=== PATIENT | female | born 1930 | race Caucasian/White ===

== ENCOUNTER 2016-06-16 21:14 | Inpatient (IN) | payer OTHER ==
[~2016-06-16 21:14] MED LIST: AUGMENTIN 875875 MG PO; BENTYL20 MG PO; CARDIZEM 180 M180 MG PO; CARDIZEM CD 12120 MG PO; COLACE100 MG PO; COUMADIN 2.5 M2.5 MG PO; DIGOX0.125 MG PO; DILTIAZEM HCL120 M2 PO; ELIQUIS5 MG PO; FLOVENT HF0.11 MG/Ac INH; FUROSEMIDE20 MG PO; METOPROLOL SUC100 MG PO; MEVACOR20 MG PO; PERCOCET 325 MG1 TA2 PO; PREDNISONE10 MG PO; PROAIR HFA0.09 MG/Ac PO; Robitussin PO; SPIRIVA 18 MCG18 MCG INH; TOPROL XL 25MG25 MG PO; WARFARIN SODIUM5 MG PO; ZOLOFT50 MG PO
--- NOTE | 2016-06-16 21:22 | NUR ---
PER PT/DAUGHTER IN BED SINCE TUESDAY VAGUE CO COUGH NOT FEELING WELL NO NVD NO FEVER, DRY COUGH IN TRIAGE. DENEIS PAIN
--- NOTE | 2016-06-16 21:42 | ED GENERAL ADULT ---
History of Present Illness General Chief Complaint: General Adult Stated Complaint: "DON'T FEEL WEEL, WEAKNESS.+N+V-D, HX A-FIB" Source: patient, family, old records Exam Limitations: clinical condition Vital Signs & Intake/Output Vital Signs & Intake/Output Vital Signs Date Time Temp Pulse Resp B/P Pulse O2 O2 Flow FiO2 Ox Delivery Rate 06/16 2250 95 Nasal 2.0L Cannula 06/16 2122 97.9 92 22 109/78 93 Room Air Allergies Coded Allergies: NO KNOWN ALLERGIES (03/17/11) Reconcile Medications Albuterol Sulfate (Proair Hfa) 0.09 MG/Actuation LASHON 2 PUFF PO Q4 HRS NEEDED PRN BREATHING PROBLEMS Reason to Stop at ADM: ON TRC NEBS Apixaban (Eliquis) 5 MG TABLET 1 TAB PO BID anticoagulation free card given to patient. if patient requires further prescription prior authorization required from Dr. Boyer office. Diltiazem HCl (Diltiazem 24HR ER) 360 MG CAP.ER.24H 1 CAP PO DAILY AFIB Docusate Sodium (Colace) 100 MG SGL 1 CAP PO BID for constipation this is available otc Escitalopram Oxalate (Lexapro) 20 MG TABLET 1 TAB PO DAILY mental health ( Reported) Fluticasone Propionate (Flovent Hfa) 0.11 MG/Actuation LASHON 2 PUF INH BID SHORTNESS OF BREATH Furosemide 20 MG TABLET 1 TAB PO EOD DIUERTIC (Reported) Levothyroxine Sodium 50 MCG TABLET 0.5 TAB PO DAILY hypothyroid (Reported) Lovastatin (Mevacor) 20 MG TABLET 1 TAB PO DAILY CHOLESTEROL (Reported) Prednisone 20 MG TABLET 40 MG PO DAILY bronchitis STOP ON 06/21/2016 Tiotropium [place] (Spiriva) 18 MCG CAP.W.DEV 1 CAP INH DAILY SHORTNESS OF BREATH Triage Note: PER PT/DAUGHTER IN BED SINCE TUESDAY VAGUE CO COUGH NOT FEELING WELL NO NVD NO FEVER, DRY COUGH IN TRIAGE. SLADEEIS PAIN Triage Nurses Notes Reviewed? yes Onset: Gradual Duration: day(s): (3) Timing: recent history Injury Environment: home Severity: moderate No Modifying Factors: none Associated Symptoms: cough HPI: 85 year old female who presents to the ER with her daughter for chief complaint of dry cough for the past 3 days associated with weaknes, malaise and poor oral intake. No productive sputum, fever or chills. Denies chest pain. Found to be in rapid afib on arrival. History of Afib on eliquis. Past History Travel History Traveled to [place] past 21 day No Medical History Any Pertinent Medical History? 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 History of MRSA: No History of VRE: No History of CDIFF: No Surgical History Surgical History: hysterectomy, RIGHT KNEE REPLACEMENT, TAHBSO, ELBOW SURGERY COLOSTOMY Psychosocial History Who do you live with Patient and family Services at Home None What is your primary language Czech Tobacco Use: Never used Family History Family History, If Any: FATHER, , Age 70; Cause: Prostate cancer. MOTHER, , Age 100. BROTHER (COLON CANCER). , Age 66. Relation not specified for: malignant neoplasm of colon in relative diagnosed when older than 50 years of age Hx Contributory? No Review of Systems Review of Systems Constitutional: Reports: weakness. Denies: chills, fever, malaise. EENTM: Reports: no symptoms. Respiratory: Reports: cough, short of breath. Denies: sputum production. Cardiovascular: Denies: chest pain, palpitations. GI: Denies: abdominal pain. Genitourinary: Reports: no symptoms. Musculoskeletal: Reports: no symptoms. Skin: Reports: no symptoms. Neurological/Psychological: Denies: anxiety, confusion. Hematologic/Endocrine: Denies: bruising, bleeding. Immunologic/Allergic: Denies: splenectomy. All Other Systems: Reviewed and Negative Physical Exam Physical Exam General Appearance: alert, awake, anxious, mild distress Head: atraumatic, normal appearance Eyes: Bilateral: PERRL, EOMI. Ears, Nose, Throat: normal pharynx, normal ENT inspection, hearing grossly normal Neck: normal inspection, supple, full range of motion Respiratory: chest non-tender, no respiratory distress, decreased breath sounds Cardiovascular: tachycardia, irregularly irregular Peripheral Pulses: 2+ radial (R), 2+ radial (L) Gastrointestinal: normal bowel sounds, soft, non-tender Extremities: normal inspection, normal capillary refill, normal range of motion, no edema Neurologic/Psych: no motor/sensory deficits, awake, alert, oriented x 3 Skin: intact, normal color, warm/dry Core Measures ACS in differential dx? Yes ASA ordered for poss ACS? No-other contraindication (ELIQUIS) CVA/TIA Diagnosis: No Severe Sepsis Present: No Septic Shock Present: No Progress Differential Diagnoses I considered the following diagnoses in my evaluation of the patient: [rapid afib, chf, pneumonia, acs, ami] Plan of Care: Orders Procedure Date/time Status Heart Healthy Diet 06/17 B Active LACTIC ACID 06/17 41 Active Admit to inpatient 06/16 2249 Active Vital Signs 06/16 2249 Active LOWER RESPIRATORY CULTURE 06/16 2143 Active Telemetry/Swimming Pool Maintenance Supervisor 06/16 2141 Active RAPID VIRAL INFLUENZA A 06/16 2141 Complete BLOOD CULTURE 06/16 2141 Active URINALYSIS 06/16 2141 Active TROPONIN LEVEL 06/16 2141 Complete PARTIAL THROMBOPLASTIN TIME 06/16 2141 Complete PROTHROMBIN TIME 06/16 2141 Complete LACTIC ACID 06/16 2141 Complete COMPREHENSIVE METABOLIC PANEL 06/16 2141 Complete CBC WITHOUT DIFFERENTIAL 06/16 2141 Complete EKG 06/16 2123 Active Current Medications Sig/Shannon Start time Last Medication Dose Stop Time Status Admin Diltiazem HCl 125 MG Q12H 06/16 2229 UNVr (Cardizem DRIP) Sodium Chloride 100 ML (Normal Saline 0.9%) Sodium Chloride 500 ML BOLUS ONE 06/16 2229 AC (Normal Saline 0.9%) 06/16 2329 Laboratory Tests 06/16/162149: Anion Gap 14, Estimated GFR 31 L, BUN/Creatinine Ratio 22.5, Glucose 137 H, Lactic Acid 2.2 H, Calcium 8.7, Total Bilirubin 0.8, AST 29, ALT 32, Alkaline Phosphatase 94, Troponin I 0.02, Total Protein 6.8, Albumin 4.1, Globulin 2.7, Albumin/Globulin Ratio 1.5, PT 13.9 H, INR 1.33 H, APTT 40 H, CBC w Diff NO MAN DIFF REQ, RBC 5.53 H, MCV 90.9, MCH 29.9, RDW 14.3, MPV 9.8, Gran % 62.4, Lymphocytes % 24.4, Monocytes % 12.8 H, Eosinophils % 0.1, Basophils % 0.3, Absolute Granulocytes 4.2, Absolute Lymphocytes 1.6, Absolute Monocytes 0.9 H, Absolute Eosinophils 0, Absolute Basophils 0, PUBS MCHC 32.9 L Microbiology 06/16 2224 BLOOD: Blood Culture - RECD 06/16 2149 BLOOD: Blood Culture - RECD 06/16 2143 LOWER RESP: Respiratory Culture - ORD 06/16 2143 LOWER RESP: Gram Stain - ORD Diagnostic Imaging: Viewed by Me: Radiology Read. Discussed w/RAD: Radiology Read. CXR Impression: PATIENT: COLLETTE BARROSO PRESENT AGE: 85 PATIENT ACCOUNT NO: [id number] : 30 LOCATION: [facility] ORDERING PHYSICIAN: TYLER BONDS MD SERVICE DATE: 06/16/16 EXAM TYPE: RAD - XRY-PORTABLE CHEST XRAY EXAMINATION: XR PORTABLE CHEST CLINICAL INFORMATION: Cough and shortness of breath COMPARISON: Chest x-ray 01/16/2015 TECHNIQUE: Portable AP portable view of the chest was obtained. 10:04 PM FINDINGS: Heart size enlarged. There are calcifications of thoracic aorta. No pulmonary vascular congestion. No acute change. No infiltrate or pleural effusion. IMPRESSION: No acute change of chest. Cardiomegaly. No congestive heart failure. DICTATED BY: JEREMY GARCIA MD DATE/TIME DICTATED:06/16/162219 DIRECTOR HEALTH:NORMA DATE/TIME TRANSCRIBED:06/16/162219 CONFIDENTIAL, DO NOT COPY WITHOUT APPROPRIATE AUTHORIZATION. <Electronically signed in Other Vendor System> SIGNED BY: JEREMY GARCIA MD 06/16/162224 Initial ED EKG: AFIB (RAPID) Rhythm Strip: atrial fibrillation (RAPID) Departure Departure Disposition: STILL A PATIENT Condition: Stable Clinical Impression Primary Impression: Rapid atrial fibrillation Secondary Impressions: Acute bronchitis, LAINE (acute kidney injury) Referrals: RAMON DOLL,KIM Guerin (PCP/Family) Departure Forms: Customer Survey General Discharge Information Prescriptions: Current Visit Scripts Diltiazem HCl (Diltiazem 24HR ER) 1 CAP PO DAILY #30 CAP Prednisone 40 MG PO DAILY 1 Days STOP ON 06/21/2016 Admission Note Spoke With: CANELO TOM MD Documentation of Exam: Documentation of any treatments & extenuating circumstances including Concerns Regarding Discharge (functional status, medication knowledge or non-compliance, living conditions, etc.) that warrant an admission rather than observation: [ TELE MONITOR, CARDIZEM DRIP, IV FLUIDS, MONITOR I/O, SERIAL EKG/TROPONIN, TRC/ NEBS, IV STEROIDS, PULMONARY CONSULT] Critical Care Note Critical Care Note Critical Care Time: 30-74 min
--- NOTE | 2016-06-16 21:45 | NUR ---
IN ROOM 8. SEEN BY DR BONDS
--- NOTE | 2016-06-16 21:50 | NUR ---
RECIEVED TO ROOM 8. ASSISTED BY MST TO GET UNDRESSED AND EKG DONE
[2016-06-16 22:05] LABS: ABSOLUTE BASOPHIL COUNT 0 /CUMM (0.0-0.2); ABSOLUTE EOSINOPHIL COUNT 0 /CUMM (0.0-0.7); ABSOLUTE GRANULOCYTE CT 4.2 /CUMM (1.4-6.5); ABSOLUTE LYMPH COUNT 1.6 /CUMM (1.2-3.4); ABSOLUTE MONOCYTE COUNT 0.9 /CUMM (0.10-0.60); BASOPHIL % 0.3 % (0.0-2.0); EOSINOPHIL % 0.1 % (0-5); GRANULOCYTE % 62.4 % (42.2-75.2); HEMATOCRIT 50.3 % (37-47); MEAN CORPUSCULAR HGB 29.9 PG (27.0-31.0); MEAN CORPUSCULAR HGB CONC 32.9 G/DL (33.0-37.0); MEAN CORPUSCULAR VOLUME 90.9 FL (81.0-99.0); MEAN PLATELET VOLUME 9.8 FL (7.4-10.4); PLATELET COUNT 155 /CUMM (130-400); RBC DISTRIBUTION WIDTH 14.3 % (11.5-14.5); RED BLOOD CELL CT 5.53 /CUMM (4.20-5.40); WHITE BLOOD CELL COUNT 6.7 /CUMM (4.8-10.8)
--- NOTE | 2016-06-16 22:12 | NUR ---
PT ON MONITOR, IN AFIB WITH VENTRICULAR RATE OF 150. IV PLACED IN RIGHT ARM BY LUIS A EASON. LABS DRAWN BY LUIS A EASON -LAV, BAUER, BLUE, SST AND PINK. FIRST SET OF BLOOD CULTURES DONE. IVF BOLUS STARTED.
[2016-06-16 22:13] LABS: PT 13.9 SEC (9.4-12.5); PTT 40 SEC (25-37)
--- NOTE | 2016-06-16 22:13 | NUR ---
PORTABLE CXR DONE
--- NOTE | 2016-06-16 22:25 | RADIOLOGY REPORT ---
EXAMINATION: XR PORTABLE CHEST CLINICAL INFORMATION: Cough and shortness of breath COMPARISON: Chest x-ray 01/16/2015 TECHNIQUE: Portable AP portable view of the chest was obtained. 10:04 PM FINDINGS: Heart size enlarged. There are calcifications of thoracic aorta. No pulmonary vascular congestion. No acute change. No infiltrate or pleural effusion. IMPRESSION: No acute change of chest. Cardiomegaly. No congestive heart failure.
--- NOTE | 2016-06-16 23:09 | NUR ---
PT STARTED ON DILTIAZEM GTT AT 5MG/HR. SOLUMEDROL GIVEN. NEB TX GIVEN. ASSISTED TO COMMODE, UNABLE TO VOID
--- NOTE | 2016-06-17 00:13 | History & Physical ---
MYCHAL DOLL,[facility] [employer] [facility] [employer] 06/17/16 0013: General Information and HPI MD Statement: I have seen and personally examined COLLETTE TORRES and documented this H&P. The patient is a 85 year old F who presented with a patient stated chief complaint of lethargy, weakness and fatigue. Source of Information: patient, old records Exam Limitations: no limitations History of Present Illness: Ms. Torres is a 85-year-old lady With past medical history of paroxysmal atrial fibrillation on anticoagulation, hyperlipidemia and questionable reactive airway disease, who presented to the emergency department at [facility] complaining of lethargy, fatigue, and a sense of weakness. Patient states that her symptoms began on Tuesday06/13/2016. Patient states that she has had an increase in the amount of sleep that she has required. Patient states that she has had poor by mouth intake. Patient states that this evening prior to coming in her daughter attempted to check her pulse and was unable to locate one. Patient was subsequently brought in by daughter. Patient denies any history or recent falls or loss of cousciousnes. Patient states that she is in no pain at the moment. Patient does report subjective dizziness likely related to change in position. Patient reports cough with minor sputum. She denies any fever, chills, nausea, vomiting. Patient lives at home with daughter and grand kids. Patient's is in a nursing care facility. Patient's primary care physician is Dr. Navarro. Patient's wire photo operator is Dr. Amador. Allergies/Medications Allergies: Coded Allergies: NO KNOWN ALLERGIES (03/17/11) Home Med list Albuterol Sulfate (Proair Hfa) 0.09 MG/Actuation LASHON 2 PUFF PO Q4 HRS NEEDED PRN BREATHING PROBLEMS Reason to Stop at ADM: ON C NEBS Apixaban (Eliquis) 5 MG TABLET 1 TAB PO BID anticoagulation free card given to patient. if patient requires further prescription prior authorization required from Dr. Boyer office. Digoxin (Digox) 0.125 MG TAB 1 TAB PO DAILY HEART HEALTH (Reported) Diltiazem Hydrochloride (Diltiazem HCl) 120 MG C24 1 CAP PO DAILY HEART HEALTH (Reported) Docusate Sodium (Colace) 100 MG SGL 1 CAP PO BID for constipation this is available otc Fluticasone Propionate (Flovent Hfa) 0.11 MG/Actuation LASHON 2 PUF INH BID SHORTNESS OF BREATH Furosemide 20 MG TABLET 1 TAB PO EOD DIUERTIC (Reported) Lovastatin (Mevacor) 20 MG TABLET 1 TAB PO DAILY CHOLESTEROL (Reported) Metoprolol Succ XL (Toprol XL 25MG) 50 MG TAB.ER.24H 25 MG PO DAILY Heart Health OXYCODONE HCL/ACETAMINOPHEN (Percocet 5-325 MG Tablet) 325 MG/5 MG TAB 1 TAB PO Q4 HRS NEEDED PRN PAIN Tiotropium [place] (Spiriva) 18 MCG CAP.W.DEV 1 CAP INH DAILY SHORTNESS OF BREATH Compliance With Home Meds: GOOD Past History Travel History Traveled to [place] past 21 day No Medical History Neurological: NONE EENT: NONE Cardiovascular: CHF, hypertension, hyperlipidemia, ATRIAL FIBRILLATION ELEVATED CHOLESTEROL Respiratory: asthma Gastrointestinal: diverticulitis, colostomy Hepatic: NONE Renal: NONE Musculoskeletal: degen joint disease Psychiatric: NONE Endocrine: NONE Blood Disorders: NONE Cancer(s): NONE BANQUET COOK/Reproductive: remote YADY/BSO 40 years ago for benign reasons. History of MRSA: No History of VRE: No History of CDIFF: No Surgical History Surgical History: hysterectomy, RIGHT KNEE REPLACEMENT, TAHBSO, ELBOW SURGERY COLOSTOMY Past Family/Social History Family History Relations & Conditions if any FATHER, , Age 70; Cause: Prostate cancer. MOTHER, , Age 100. BROTHER (COLON CANCER). , Age 66. Relation not specified for: malignant neoplasm of colon in relative diagnosed when older than 50 years of age Psychosocial History Who Do You Live With? self, in SNF for past year after hip surgery. Services at Home: None Primary Language: Maori Smoking Status: Never Smoked ETOH Use: occasional use Illicit Drug Use: denies illicit drug use Living Will? unknown Power of Liner Assembler/HCP? unknown Functional Ability ADLs Independent: dressing, eating, toileting, bathing. Ambulation: independent IADLs Independent: shopping, housework, finances, food prep, telephone, transportation , medication admin. Employment History Employment Retired Review of Systems Review of Systems Constitutional: Reports: weakness. Denies: chills, diaphoresis, fever, malaise. Cardiovascular: Denies: chest pain, edema, orthopena, palpitations, peripheral edema. Respiratory: Denies: cough, hemoptysis, orthopnea, short of breath, sputum production. GI: Denies: abdominal pain, bloating, constipation, diarrhea, distention, bowel incontinence, melena, nausea. Genitourinary: Denies: dysuria, frequency, hematuria, hesitation, nocturia. Musculoskeletal: Denies: back pain, gout, joint pain, joint swelling. Skin: Denies: change in skin color, change in hair/nails, dryness, erythema. Exam & Diagnostic Data Last 24 Hrs of Vital Signs/I&O Vital Signs Date Time Temp Pulse Resp B/P Pulse O2 O2 Flow FiO2 Ox Delivery Rate 06/17 0433 97.8 109 22 128/89 95 Nasal 2.0L Cannula 06/16 2318 Nasal 2.0L Cannula 06/16 2316 98.7 142 20 122/76 95 Nasal 2.0L Cannula 06/16 2250 95 Nasal 2.0L Cannula 06/16 2123 97.9 92 22 109/78 93 Room Air Intake & Output 06/17 0800 06/17 0000 06/16 1600 Intake Total 500 Output Total Balance 500 Intake, IV 500 Patient 68.039 kg Weight Physical Exam General Appearance Alert, Oriented X3, Cooperative, No Acute Distress Lymphatic Cervical nl Cardiovascular Normal S1, Normal S2, Irregular rate and Rhythm Lungs Expiratory Wheezing Abdomen Normal Bowel Sounds, Soft, No Tenderness, Midline Scar Neurological Normal Gait, Normal Speech, Strength at 5/5 X4 Ext, Cranial Nerves 3-12 NL Extremities No Cyanosis, No Edema Vascular Normal Pulses Last 24 Hrs of Labs/Jaiden: Laboratory Tests 06/17/16 0105: Lactic Acid 0.9 06/16/16 2150: Anion Gap 14, Estimated GFR 31 L, BUN/Creatinine Ratio 22.5, Glucose 137 H, Lactic Acid 2.2 H, Calcium 8.7, Total Bilirubin 0.8, AST 29, ALT 32, Alkaline Phosphatase 94, Troponin I 0.02, Total Protein 6.8, Albumin 4.1, Globulin 2.7, Albumin/Globulin Ratio 1.5, PT 13.9 H, INR 1.33 H, APTT 40 H, CBC w Diff NO MAN DIFF REQ, RBC 5.53 H, MCV 90.9, MCH 29.9, RDW 14.3, MPV 9.8, Gran % 62.4, Lymphocytes % 24.4, Monocytes % 12.8 H, Eosinophils % 0.1, Basophils % 0.3, Absolute Granulocytes 4.2, Absolute Lymphocytes 1.6, Absolute Monocytes 0.9 H, Absolute Eosinophils 0, Absolute Basophils 0, PUBS MCHC 32.9 L Microbiology 06/16 2224 BLOOD: Blood Culture - RECD 06/16 2149 BLOOD: Blood Culture - RECD 06/16 2143 LOWER RESP: Respiratory Culture - ORD 06/16 2143 LOWER RESP: Gram Stain - ORD Diagnostic Data EKG Results A. Fib Rate 158 QTC 441 CXR Results PATIENT: COLLETTE TORRES PRESENT AGE: 85 PATIENT ACCOUNT NO: [id number] : 30 LOCATION: [facility] ORDERING PHYSICIAN: TYLER BONDS MD SERVICE DATE: 06/16/16 EXAM TYPE: RAD - XRY-PORTABLE CHEST XRAY EXAMINATION: XR PORTABLE CHEST CLINICAL INFORMATION: Cough and shortness of breath COMPARISON: Chest x-ray 01/16/2015 TECHNIQUE: Portable AP portable view of the chest was obtained. 10:04 PM FINDINGS: Heart size enlarged. There are calcifications of thoracic aorta. No pulmonary vascular congestion. No acute change. No infiltrate or pleural effusion. IMPRESSION: No acute change of chest. Cardiomegaly. No congestive heart failure. DICTATED BY: JEREMY GARCIA MD Assessment/Plan Assessment: Ms Torres is an 85-year-old lady with past medical history of paroxysmal atrial fibrillation on current anticoagulation on Eliquis, hyperlipidemia, reactive airway disease, who presented to the emergency department after feeling weak and lethargic since Tuesday. This may have exacerbated her atrial fibrillation leading to developing rapid ventricular rate. #Atrial fibrillation with rapid ventricular rate likely due to dehydration versus upper respiratory infection. Rule out ACS, Admit to telemetry. Repeat troponins and EKG. Initial set of troponins were: 0.02, repeat troponins at 3 AM. Patient is currently on a Cardizem drip. Rate is currently 5 mL per hour. Hold by mouth metoprolol and Cardizem. Check thyroid function in a.m. rule out hyperthyroidism. If there are functions reveal elevations consider endocrinology consult. #Reactive airway disease versus bronchitis. Continue by mouth prednisone 40 mg. Patient on steroid taper. TRC Nebulizer. Incentive spirometer LRC respiratory culture. Patient may likely benefit from continue inhalers albuterol, Flovent, If patients condition deteriorates consider chest x-ray and or antibiotic coverage. #Acute and chronic kidney injury Patient likely developed condition due to dehydration. Prior admission April 2015 shows creatinine 0.7. Continue patient IV hydration Repeat BEP in a.m. Consider nephrology consult in a.m. #Diet Heart healthy sodium restricted #DVT prophylaxis Eliquis #Code Full code As Ranked By This Provider Problem List: 1. Atrial fibrillation 2. Atrial fibrillation with RVR Core Measures/Miscellaneous Acute Coronary Syndrome ACS Diagnosis: No Cerebrovascular Accident CVA/TIA Diagnosis: No Congestive Heart Failure CHF Diagnosis: No Venous Thromboembolism VTE Risk Factors: Age > 40 VTE Prophylaxis Ordered Inpt: Pharm- Eliquis No Mech VTE prophylaxis d/t: No contraindications No VTE Pharm Prophylaxis d/t: No contraindications VTE Diagnosis: No VTE Type: NONE VTE Confirmed by (Test): NONE Severe Sepsis Severe Sepsis Present: No Septic Shock Septic Shock Present: No Miscellaneous Documentation Attending Case Discussed With: CANELO TOM MD Primary Care Physician: KIM NAVARRO MD Patient sees these Specialists NA Level of Patient Care: Telemetry DIVYA BEST 06/16/16 0039: Resident Review Statement Resident Statement: examined this patient, discussed with electrical engineering intern, agreed with electrical engineering intern, discussed with family, reviewed EMR data (avail), discussed with nursing , discussed with case mgmt, reviewed images, amended to note Other Findings: 83-year-old female presente in the ED reporting progressive lethargy and fatigue over the past few days. Patient has PMH remarkable for PAFIB on a/c with Apixaban, HLP and ?? asthma/reactive airway disease, constipation, chronic leg edema. Pateient exprsses that since Tuesday, generally, she has not been feeling well, and had a very poor oral intake. She became increasingly tired and to some extend lightheaded with change of position. Patient reports that she has been having dry coughs but denies any sick contact, fever, chills, chest pain, NVD. In the ED, her Vs were satble, but EKG showed AFIB w/ RVR.ROS: low energy and fatigue and dry cough. PH/EX: AOx3, dry Mocous membrane, S1S2 regular w/o murmur , neg orthostatic, Lungs: normal expansion w/ prolonged expiration, B/L basilar Ronchi. the remainder of the PH/EX was insignificant. Pertinent data: CBC: wnl; K=3.8, BUN 36, Cr 1.6, BUN/Cr ratio >30, Previous echo from 2013>> LVEF 55%, No pulmonary HTN. TROP< 0.01, EKG: Afib, Hr 158, normal axis, no acute st, t segment change. assessment 85 year-old woman was admitted for A.fib with RVR. List of problems and Plan #1 Afib w/ RVR: possibly in the setting of URI and or dehydraion. compliance w/ medication is acceptable. Acute coronary syndrome needs to be R/o. * admit to tele * Trend troponin- another set at 2 am * Stop PO metoprolol and Cardizem * Keep her on IV cardizem yesenia; titrate for HR<110 bpm * Apixaban 5 mg po bid * TSH and free T4 * Dr. Bustamante was informed #2 Bronchitis and reactive airway disease * TRC/neb * albuterol inh 3 ml Q6 prn * Flovent 2 PUff BID and rinse afterward * PO prednisone 40 mg x5 days #3 LAINE- Cr was 0.7 back in Apr 2015, had few rise to 1.1 in between, however, with any of those values, it seems that this patient has LAINE on CRF. * Continue IV hydration * Repeat BEP am * Follow up with nephro- am team Full code CANELO TOM 06/17/16 0600: Attending MD Review Statement Attending Statement Attending MD Statement: examined this patient, discuss w/resident/PA/PAINTING MACHINE OPERATOR, agreed w/resident/PA/PAINTING MACHINE OPERATOR, discussed with family, reviewed EMR data (avail), reviewed images, amended to note Attending Assessment/Plan: CC: Lethargy PMH: A. fib, HTN, HF, ? Asthma, HLD, MR, hypothyroidism, Hx distal large bowel obstruction S/P sigmoid colectomy and reversal of colostomy. Patient was brought in by her daughter for lethargy, decreased appetite, decreased by mouth intake. patient was sleeping most of the time at home since last 2- 3 days. Patient's daughter checked her pulse which was running very high so she brought her to ER. Off note patient was also having dry cough, chest congestion since last 1 week and most of her family members are sick. She denied fever but had some chills a day before, no CP, palpitations, dizziness, LOC, fall, no vomiting or constipation. Patient uses Spiriva every day, and rescue inhaler once in a month as required. Vitals: Afebrile, HR 140s, RR 22, BP in acceptable range, saturating 95% on 2 L. On exam a O 3, no respiratory distress, anxious, neck supple, no lymphadenopathy, no JVD, mucosa moist, CVS: S1-S2 tachycardia irregular, RS: Bilateral rhonchi, prolonged expiration. Abdomen: Soft, NT, ND, bowel sounds present, no pedal edema. No focal neurological deficit. Labs: BUN 36, creatinine 1.6 (increased as compared to 2015, now in between values available) , glucose 137, lactate 2.2, LFT, CBC, BMP otherwise unremarkable. Troponin 0.02. CXR: No acute cardiopulmonary process, cardiomegaly. EKG: A. fib with RVR. A and P #1 A. fib with RVR : Patient currently on Cardizem at 5mg, titrate the drip according to HR, goal :110, monitor on telemetry, trend troponin, repeat EKG in a.m. Hold by mouth diltiazem and metoprolol, resume in a.m. Consult cardiology in a.m. Check TSH, check BEP name, check magnesium, replace if low. Continue Eliquis at 2.5 PO bid. #2 LAINE: Previous comparison value in 2015, patient is unaware of any chronic kidney disease, BUN is elevated, probably dehydration secondary to poor oral intake. Continue gentle hydration with normal saline at 100 mL per hour, repeat BMP in the a.m. strict I's and O's. #3 reactive airway disease : ? History of asthma, sick contacts at home, precipitating acute bronchitis. Afebrile, WBC normal. Rhonchi on auscultation. Never smoked tobacco, Continue albuterol inhalation, continue prednisone 40 mg by mouth for 5 days, hold off antibiotics for now. #4 DVT prophylaxis currently on Eliquis. Adequate pain control.
--- NOTE | 2016-06-17 00:55 | NUR ---
REPEAT LACTIC ACID IN PROGRESS BY SHANELL JORDAN. PATIENT AWAKE WILL BE TELE HOLD IN DEPT OVERNIGHT. ANALYST PROGRAMMER PAGED FOR HOSPITAL BED. HR:114 ON MONITOR AT THIS TIME.
--- NOTE | 2016-06-17 01:07 | NUR ---
HOUSESTAFF AT BEDSIDE FOR INITIAL EVAL
--- NOTE | 2016-06-17 02:23 | NUR ---
DR FLORENTINO NOW IN FOR EVAL.
--- NOTE | 2016-06-17 02:36 | NUR ---
CONT TO AWAIT BED FROM SUPERVISIOR, THERE IS NO BED IN TELE.
--- NOTE | 2016-06-17 02:45 | NUR ---
REMAINS IN AFIB RATE 70'S-116. NO CO CP PT MILDLY SOB. LUNGS SL DIMINISHED. PT RECIEVED 1 LITER NS SINCE ED ARRIVAL. WILL DISCUSS WITH HOUSESTAFF ABOUT CONT OF IVF MAINTENENCE AT THIS TIME. PT SLEEPING SOUNDLY, DOOR CLOSED AND LIGHTS LOWERED.
--- NOTE | 2016-06-17 03:48 | NUR ---
HOUSESTAFF CONTINUES TO CALL AND REQUEST PTS CURRENT "AVERAGE HR" HOUSESTAFF AWARE THAT SHE IS IN AFIB AND THAT IT IS IMPOSSIBLE TO GIVE AN AVERAGE HR IT IS IRREGULAR AND RANGES FROM 70'S TO 120. RPT REMAINS ASLEEP AND IS ASYMPTOMATIC SHE HAS NOT AWOKEN OR CO CP
--- NOTE | 2016-06-17 04:30 | NUR ---
AWAKE D/T MONITOR ALARM, PT RESTING COMF BUT WAS STARTLED, VSS PT ALERT COOP REPOSITIONED, BACK RUB GIVEN HR REMAINS 70'S - 110'S. NO CO OF CP.
--- NOTE | 2016-06-17 06:02 | Admission Certification ---
Admission Certification Certification Statement - As attending physician, I certify that at the time of - admission, based on clinical presentation, severity of - symptoms, need for further diagnostic testing and - therapeutic interventions, and risk of adverse outcomes - without in-hospital treatment, in my clinical assessment, - this patient requires an acute hospital stay for a minimum - of two nights or longer. I have also considered psychsocial - factors such as support system, advanced age, financial - issues, cognitive issues, and failed out-patient treatments, - past re-admission history, safety of patient, and lack of - compliance as applicable. Specific rationale supporting this admission is: A. fib with RVR, LAINE
[2016-06-17 06:59] VITALS: BP 111/72
--- NOTE | 2016-06-17 07:21 | NUR ---
ASSUMED CARE, PT AWAKE ALERT AND ORIENTED BUT NOTED TO BE VERY HARD OF HEARING, AFIB ON MONITOR WITH HR 106 AT THIS TIME, CARDIZEM DRIP INFUSING AT 5MG /HR, DENIES CP, O2 SAT 97 % ON 2L VIA NC FOR COMFORT. PT ASSISTED UP TO BEDSIDE COMMODE AND THEN ASSISTED INTO HOSPITAL BED, PT POSITIONED UP RIGHT AND EATING BREAKFAST AT THIS TIME.
[2016-06-17 09:17] VITALS: BP 112/71
--- NOTE | 2016-06-17 09:19 | NUR ---
PT RESTING IN BED ASLEEP WHEN ENTERING ROOM BUT WAKES UP FOR VITALS, CONTINUES TO DENIES CP/SOB, HR 107 ON MONITOR AND AFIB, CARDIZEM DRIP CONTINUES. PHARMACY CALLED FOR MEDS
--- NOTE | 2016-06-17 09:42 | NUR ---
PT MEDICATED PER ORDER . RESTING IN BED ALERT AND ORIENTED
--- NOTE | 2016-06-17 09:57 | NUR ---
REPORT TO LINDEN ON FLOOR, FLOOR WILL CALL WHEN BED IS READY
--- NOTE | 2016-06-17 10:50 | NUR ---
PT HAS BED ASSIGNMENT 178-1. ROOM NOT READY PER RESERVATION BOARD.
--- NOTE | 2016-06-17 11:21 | Cons- Cardiology ---
General Information and HPI Consulting Request Date of Consult: 06/17/16 Requested By: TERI DOLL,RAKESH Thompson Reason for Consult: Rapid atrial fibrillation History of Present Illness: The patient is an 85-year-old female with history of paroxysmal atrial fibrillation, anticoagulated on Eliquis. She presented to the emergency department with complaint of lethargy, fatigue, and weakness. She notes that she may have missed some of her medications because of being sleepy. She has recently had poor pedal intake. She notes that her daughter attempted to check her pulse and was unable to locate it. She notes recent lightheadedness and dizziness. No chest pain. No palpitations. No diaphoresis. No syncope. No orthopnea. No nausea or vomiting. She was noted to be in atrial fibrillation with rapid ventricular rate, and IV diltiazem was initiated. Allergies/Medications Allergies: Coded Allergies: NO KNOWN ALLERGIES (03/17/11) Home Med List: Albuterol Sulfate (Proair Hfa) 0.09 MG/Actuation LASHON 2 PUFF PO Q4 HRS NEEDED PRN BREATHING PROBLEMS Reason to Stop at ADM: ON TRC NEBS Apixaban (Eliquis) 5 MG TABLET 1 TAB PO BID anticoagulation free card given to patient. if patient requires further prescription prior authorization required from Dr. Boyer office. Digoxin (Digox) 0.125 MG TAB 1 TAB PO DAILY HEART HEALTH (Reported) Diltiazem Hydrochloride (Diltiazem HCl) 120 MG C24 1 CAP PO DAILY HEART HEALTH (Reported) Docusate Sodium (Colace) 100 MG SGL 1 CAP PO BID for constipation this is available otc Fluticasone Propionate (Flovent Hfa) 0.11 MG/Actuation LASHON 2 PUF INH BID SHORTNESS OF BREATH Furosemide 20 MG TABLET 1 TAB PO EOD DIUERTIC (Reported) Lovastatin (Mevacor) 20 MG TABLET 1 TAB PO DAILY CHOLESTEROL (Reported) Metoprolol Succ XL (Toprol XL 25MG) 50 MG TAB.ER.24H 25 MG PO DAILY Heart Health OXYCODONE HCL/ACETAMINOPHEN (Percocet 5-325 MG Tablet) 325 MG/5 MG TAB 1 TAB PO Q4 HRS NEEDED PRN PAIN Tiotropium [place] (Spiriva) 18 MCG CAP.W.DEV 1 CAP INH DAILY SHORTNESS OF BREATH Current Medications: Current Medications Sig/Shannon Start time Last Medication Dose Route Stop Time Status Admin Albuterol Sulfate 2 PUF Q6-PRN PRN 06/17 0130 AC INH Apixaban 2.5 MG BID 06/17 1000 AC 06/17 PO 0942 Atorvastatin Calcium 20 MG 1700 06/17 1700 AC PO Diltiazem HCl 0 .STK-MED ONE 06/16 2244 DC IV Diltiazem HCl 125 MG Q12H 06/16 2230 AC 06/16 Sodium Chloride 100 ML IV 2300 Fluticasone 2 PUF BID 06/17 1000 AC 06/17 Propionate INH 0942 Ipratropium [place] 2.5 ML ONCE ONE 06/16 2245 DC 06/16 INH 06/16 2246 2250 Methylprednisolone 125 MG ONCE ONE 06/16 2245 DC 06/16 IV 06/16 2246 2300 Methylprednisolone 0 .STK-MED ONE 06/16 2243 DC .ROUTE Prednisone 40 MG DAILY 06/17 1000 AC 06/17 PO / 2100 0942 Prednisone 0 .STK-MED ONE 06/17 0941 DC PO Sodium Chloride 1,000 ML Q10H 06/17 0230 AC IV Sodium Chloride 500 ML BOLUS ONE 06/16 2230 DC 06/16 IV 06/16 2329 2300 Sodium Chloride 500 ML BOLUS ONE 06/16 2145 DC 06/16 IV 06/16 2244 2200 Review of Systems Review of Systems: No rash. No tremor. No melena. No syncope. All other systems were reviewed, and were noted to be negative. 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 Surgical History Surgical History: hysterectomy, RIGHT KNEE REPLACEMENT, TAHBSO, ELBOW SURGERY COLOSTOMY Family History Relations & Conditions If Any: FATHER, , Age 70; Cause: Prostate cancer. MOTHER, , Age 100. BROTHER (COLON CANCER). , Age 66. Relation not specified for: malignant neoplasm of colon in relative diagnosed when older than 50 years of age Psychosocial History Where Do You Live? Home Who Do You Live With? self, in SNF for past year after hip surgery. Services at Home: None Primary Language: Georgian Smoking Status: Never Smoked ETOH Use: occasional use Illicit Drug Use: denies illicit drug use Living Will? unknown Power of Messenger Floorperson/HCP? unknown Functional Ability ADLs Independent: dressing, eating, toileting, bathing. Ambulation: independent IADLs Independent: shopping, housework, finances, food prep, telephone, transportation , medication admin. Employment History Employment: Retired Exam & Diagnostic Data Vital Signs and I&O Vital Signs Date Time Temp Pulse Resp B/P Pulse O2 O2 Flow FiO2 Ox Delivery Rate 06/17 923 97.3 107 18 112/71 97 Nasal 2.0L Cannula 06/17 0917 97.3 107 18 112/71 97 Nasal 2.0L Cannula 06/17 0711 97 Nasal 2.0L Cannula 06/17 0659 97.0 101 20 111/72 97 Nasal 2.0L Cannula 06/17 0433 97.8 109 22 128/89 95 Nasal 2.0L Cannula 06/16 2318 Nasal 2.0L Cannula 06/16 2316 98.7 142 20 122/76 95 Nasal 2.0L Cannula 06/16 2250 95 Nasal 2.0L Cannula 06/16 2123 97.9 92 22 109/78 93 Room Air Intake & Output 06/17 1600 06/17 0800 06/17 0000 06/16 1600 06/16 0800 06/16 0000 Intake Total 180 500 500 Output Total Balance 180 500 500 Intake, IV 500 500 Intake, Oral 180 Patient 150 lb 150 lb Weight Physical Exam: Gen: The patient is in no acute distress HEENT: Normal nose, ears, and oropharynx. Pupils equal bilaterally. Conjunctiva normal. Neck: Supple with no JVD, no masses, and no thyromegaly Lungs: Scattered wheezes with normal respiratory effort Heart: Irregularly irregular, S1, S2, 2/6 systolic murmur. No peripheral edema, 2+ pulses in the lower extremities bilaterally Abdomen: Soft, nontender, no masses. No hepatomegaly. No splenomegaly Extremities: No clubbing or cyanosis. Normal muscle strength in the upper and lower extremities Skin: Normal skin turgor with no skin ulcers or lesions noted. Neuro: Cranial nerves intact. Sensation intact Psych: Alert and oriented 3 with appropriate affect Labs/[place] Results: Laboratory Tests 06/17 06/17 06/17 06/16 0606 0606 0105 2150 Chemistry Sodium (137 - 145 mmol/L) 139 139 Potassium (3.5 - 5.1 mmol/L) 4.4 3.8 Chloride (98 - 107 mmol/L) 102 97 L Carbon Dioxide (22 - 30 mmol/L) 27 28 Anion Gap (5 - 16) 10 14 BUN (7 - 17 mg/dL) 35 H 36 H Creatinine (0.5 - 1.0 mg/dL) 1.2 H 1.6 H Estimated GFR (>60 ml/min) 43 L 31 L BUN/Creatinine Ratio (7 - 25 %) 29.2 H 22.5 Glucose (65 - 99 mg/dL) 137 H Lactic Acid (0.7 - 2.1 mmol/L) 0.9 2.2 H Calcium (8.4 - 10.2 mg/dL) 8.7 Magnesium (1.6 - 2.3 mg/dL) 1.9 Total Bilirubin (0.2 - 1.3 mg/dL) 0.8 AST (14 - 36 U/L) 29 ALT (9 - 52 U/L) 32 Alkaline Phosphatase (<127 U/L) 94 Troponin I (< 0.11 ng/ml) 0.04 0.02 Total Protein (6.3 - 8.2 g/dL) 6.8 Albumin (3.5 - 5.0 g/dL) 4.1 Globulin (1.9 - 4.2 gm/dL) 2.7 Albumin/Globulin Ratio (1.1 - 2.2 %) 1.5 TSH (0.270 - 4.200 uIU/mL) 0.756 Free T4 (0.85 - 1.93 ng/dL) 2.06 H Coagulation PT (9.4 - 12.5 SEC) 13.9 H INR (0.90 - 1.19) 1.33 H APTT (25 - 37 SEC) 40 H Hematology CBC w Diff NO MAN DIFF REQ WBC (4.8 - 10.8 /CUMM) 6.7 RBC (4.20 - 5.40 /CUMM) 5.53 H Hgb (12.0 - 16.0 G/DL) 16.5 H Hct (37 - 47 %) 50.3 H MCV (81.0 - 99.0 FL) 90.9 MCH (27.0 - 31.0 PG) 29.9 RDW (11.5 - 14.5 %) 14.3 Plt Count (130 - 400 /CUMM) 155 MPV (7.4 - 10.4 FL) 9.8 Gran % (42.2 - 75.2 %) 62.4 Lymphocytes % (20.5 - 51.1 %) 24.4 Monocytes % (1.7 - 9.3 %) 12.8 H Eosinophils % (0 - 5 %) 0.1 Basophils % (0.0 - 2.0 %) 0.3 Absolute Granulocytes (1.4 - 6.5 /CUMM) 4.2 Absolute Lymphocytes (1.2 - 3.4 /CUMM) 1.6 Absolute Monocytes (0.10 - 0.60 /CUMM) 0.9 H Absolute Eosinophils (0.0 - 0.7 /CUMM) 0 Absolute Basophils (0.0 - 0.2 /CUMM) 0 PUBS MCHC (33.0 - 37.0 G/DL) 32.9 L Diagnostic Data EKG Results EKG tracing is independently reviewed, and reveals atrial fibrillation with ventricular response of 107, old myocardial infarction CXR Results Chest x-ray: No acute abnormalities Other Results Echocardiogram 05/31/14: Normal LV size and systolic function. Severe TR. Mild pulmonary hypertension. Mild to moderate MR. Mild left atrial enlargement. Severe right atrial enlargement. Assessment/Plan Assessment/Plan 85-year-old female with history of atrial fibrillation, presenting with lethargy and poor PO intake. Noted to have evidence of reactive airway disease, and atrial fibrillation with rapid ventricular rate. The rate is now under control on diltiazem. She is noted to have acute on chronic renal insufficiency which has improved with IV fluid. Recommendations: * Start diltiazem 30 mg PO every 6 hours * Wean off IV diltiazem, keeping ventricular rate less than 110. If necessary, the PO diltiazem can be increased to 60 mg every 6 hours. * Keep off metoprolol for now given evidence of reactive airway disease. * Continue Eliquis. Since the creatinine is now less than 1.5, and weight is greater than 60 kg, the Eliquis dose should be increased to 5 mg PO twice a day Consult Acknowledgment - Thank you for your consult request.
--- NOTE | 2016-06-17 11:21 | PN- Housestaff ---
See Addendum Subjective Follow-up For: Rapid atrial fibrillation Complaints: no complaints Tele-Events Since Last Visit: No any overnight events Subjective: Patient is seen and examined at the bedside. She is not having any active complain. She denies of any palpitations, chest pain, dyspnea, shortness of breath Review of Systems Constitutional: Denies: no symptoms. Objective Last 24 Hrs of Vital Signs/I&O Vital Signs Date Time Temp Pulse Resp B/P Pulse O2 O2 Flow FiO2 Ox Delivery Rate 06/17 1216 97.8 104 18 106/72 97 Nasal 2.0L Cannula 06/17 1215 97.1 108 18 106/72 06/17 0924 97.3 107 18 112/71 97 Nasal 2.0L Cannula 06/17 0917 97.3 107 18 112/71 97 Nasal 2.0L Cannula 06/17 0711 97 Nasal 2.0L Cannula 06/17 0659 97.0 101 20 111/72 97 Nasal 2.0L Cannula 06/17 0433 97.8 109 22 128/89 95 Nasal 2.0L Cannula 06/16 2318 Nasal 2.0L Cannula 06/16 2316 98.7 142 20 122/76 95 Nasal 2.0L Cannula 06/16 2250 95 Nasal 2.0L Cannula 06/16 2123 97.9 92 22 109/78 93 Room Air Intake & Output 06/17 1600 06/17 0800 06/17 0000 Intake Total 420 500 500 Output Total Balance 420 500 500 Intake, IV 500 500 Intake, Oral 420 Patient 68.039 kg 68.039 kg Weight Physical Exam General Appearance: Alert, Oriented X3, Cooperative, No Acute Distress Skin: No Rashes, No Breakdown HEENT: Atraumatic, PERRLA, EOMI Neck: Supple, No JVD Cardiovascular: irregular Lungs: mild crepts AT the bases Abdomen: Soft, No Tenderness, No Hepatospenomegaly Neurological: Normal Speech Extremities: No Clubbing, No Cyanosis, No Edema, Normal Pulses Assessment/Plan Assessment: Patient is an 85-year-old female, with past medical history of hyperlipidemia, hypertension, asthma , diverticulitis, DJD, paroxysmal atrial fibrillation and arthritis presented with chief complaints of lethargic and weakness. Vital signs-temperature 97.8, pulse 104, respiratory rate 18, blood pressure 106 /72, SPO2 97% on room air Problem list - Paroxysmal atrial fibrillation, on Eliquis Plan- * We will follow the recommendation of Dr. Amador * According to him, we will taper down IV diltiazem and start her on tablet diltiazem 30 milligrams every 6 hourly. The target heart rate is less than 110. * Needed, then we will increase the dose of tablet diltiazem 60 milligrams every 6 hourly * We will increase the dose of Eliquis 5 milligrams twice a day by mouth, as her creatinine decreased down through less than 1.5 and her weight is more than 60 KG * Diet-heart healthy * CODE STATUS - full code Problem List: 1. Rapid atrial fibrillation Pain Ratin Pain Location: none Pain Goal: Remain pain free Pain Plan: mild Tomorrow's Labs & Rationales: bep DVT/Prophylaxis: mechanical, pharmacological
--- NOTE | 2016-06-17 11:31 | NUR ---
PT SITTING UP EATING LUNCH AT THIS TIME, OFFERS NO COMPLAINTS. AWARE THAT WE HAVE A BED ASSIGNMENT BUT IT WILL BE A LITTLE WHILE BEFORE THE ROOM IS READY .
--- NOTE | 2016-06-17 12:05 | NUR ---
PER DR NOLAN PT TO BE MEDICATED WITH PO CARDIZEM 30 MG, AND CARDIZEM DRIP TO BE DECREASED TO 2.5 MG/HR IN ATTEMPT TO WEEN PT OFF THE DRIP. PT REQUEST DIFFERENT FOOD TRAY DUE TO THE RICE AND CHICKEN ARE TO DRY AND SHE CAN'T CHEW THEM. FOOD TRAY ORDERED AND PHARMACY CALLED FOR PO MED
--- NOTE | 2016-06-17 12:11 | NUR ---
PT MEDICATED WITH PO CARDIZEM PER ORDER , AND IV CARDIZEM DRIP DECREASED TO 2.5 MG PER ORDER. PT REMAINS ALERT AND ORIENTED , AFIB ON MONITOR WITH HR 104 AT THIS TIME. REPEAT TROPONIN DRAWN BY MST
[2016-06-17 12:16] VITALS: BP 106/72
--- NOTE | 2016-06-17 12:47 | Discharge Summary ---
Visit Information Visit Dates Admission Date: 06/16/16 Discharge Date: 06/20/2016 Hospital Course Course Attending Physician: TERI DOLL,RAKESH Thompson Primary Care Physician: KIM NAVARRO MD Hospital Course: Patient is an 85-year-old female, with past medical history of hyperlipidemia, hypertension, asthma diverticulitis, DJD, paroxysmal atrial fibrillation on Eliquis and arthritis presented with chief complaints of lethargic and weakness. Vital signs-temperature 97.8, pulse 104, respiratory rate 18, blood pressure 106 /72, SPO2 97% on room air Atrial fibrillation with rapid ventricular rate -rate controlled On evaluation Chest x-ray shows no any signs of pneumonia/pulmonary edema. EKG showed atrial fibrillation with rapid ventricular rate. We admitted her in telemetry for cardiac monitoring and started her on Cardizem drip. We also evaluated her for acute coronary syndrome by serial troponins and EKG, which come back negative.We took the consult from the cardiology and advised to switch the patient on by mouth Cardizem after rate is controlled. We started her on cap Cardizem CD 360 milligrams and discharged with instruction to follow-up with cardiology within a week of discharge. Acute bronchitis- Possibly hypoxia secondary to bronchitis lead to exacerbation of atrial fibrillation. We gave her low doses of steroid which helped her with cough and respiratory symptoms. Because of wheezing and hyperactive airway dieasea we stopped the beta luis. She was sent out on aquick course of PO Prednisone Acute on chronic kidney disease Her creatinine was slightly high to 1.1, with BUN of 39, so we gave her gentle hydration, monitor it regularly. At the time of discharge, creatinine was 1.0. The time of discharge, her heart rate was 88 per minute on Cardizem CD 360 mgms. 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 Advised her to maintain her hydration and be compliant with the medication. Allergies: Coded Allergies: NO KNOWN ALLERGIES (03/17/11) Disposition Summary Disposition Principal Diagnosis: Paroxysmal Atrial fibrillation with rapid ventricle rate on eliquis Upper respiratory symptoms with likely bronchitis Additional Diagnosis: Hypertension Hyperlipidemia DJD Discharge Disposition: home or self care Discharge Instructions General Discharge Information Code Status: Full Code Patient's Diet: Heart healthy Patient's Activity: As tolerated Follow-Up Instructions/Appts: Please follow-up with your PCP within a week of discharge Please follow-up with Dr. Portillo within a week from discharge Medications at Discharge Discharge Medications: Stop taking the following medications: Diltiazem Hydrochloride (Diltiazem HCl) 120 MG C24 ORAL DAILY Metoprolol Succ XL (Toprol XL 25MG) 50 MG TAB.ER.24H ORAL DAILY Qty = 30 Continue taking these medications: Furosemide (Furosemide) 20 MG TABLET 1 Tablet ORAL Every other day Qty = 90 Comments: LAST TAKEN 04/28/15 AT 10AM Lovastatin (Mevacor) 20 MG TABLET 1 Tablet ORAL DAILY Comments: LAST TAKEN 04/27/15 AT 1700 Albuterol Sulfate (Proair Hfa) 0.09 MG/Actuation LASHON 2 PUFF ORAL EVERY 4 HOURS NEEDED as needed for BREATHING PROBLEMS Qty = 9 Instructions: Reason to Stop at ADM: ON TRC NEBS Comments: PREVIOUSLY NOTED ON CMR, NOT REPORTED DURING PRE-SX INTERVIEW Apixaban (Eliquis) 5 MG TABLET 1 Tablet ORAL TWICE DAILY Qty = 60 Instructions: free card given to patient. if patient requires further prescription prior authorization required from Dr. Boyer office. Comments: GIVEN 04/28/15 AT 10AM Fluticasone Propionate (Flovent Hfa) 0.11 MG/Actuation LASHON 2 Puff Inhale through mouth TWICE DAILY Days = 30 Comments: NOT GIVEN IN HOSPITAL Docusate Sodium (Colace) 100 MG SGL 1 Capsule ORAL TWICE DAILY Qty = 30 Instructions: this is available otc Tiotropium [place] (Spiriva) 18 MCG CAP.W.DEV 1 Capsule Inhale through mouth DAILY Qty = 30 Comments: LAST TAKEN 04/28/15 AT 10AM Levothyroxine Sodium (Levothyroxine Sodium) 50 MCG TABLET 0.5 Tablet ORAL DAILY Qty = 30 Comments: Last Taken:NOT GIVEN IN HOSPITAL Time: Escitalopram Oxalate (Lexapro) 20 MG TABLET 1 Tablet ORAL DAILY Start taking the following new medications: Prednisone (Prednisone) 20 MG TABLET 40 Milligram ORAL DAILY Days = 1 No Refills Instructions: STOP ON 06/21/2016 Comments: Last Taken:06/20/16 Time:9:27A.M Diltiazem HCl (Diltiazem 24HR ER) 360 MG CAP.ER.24H 1 Capsule ORAL DAILY Qty = 30 No Refills Comments: Last Taken:06/20/16 Time:9:27A.M Copies To: RAMON DOLL,KIM Guerin; Millie TOVAR MD; ANNIE DOLL,KIM Attending MD Review Statement Documenting Attending: TERI DOLL,RAKESH Thompson
--- NOTE | 2016-06-17 12:49 | NUR ---
AMBULATED PT TO REST ROOM, PT WET PANTS PREVIOUSLY TO GOING TO REST ROOM. ONCE BACK IN ROOM WE TOOK PANTS OFF CLEANED HER MAUREEN AREA. PUT A DRY DIAPER ON INCASE OF ANOTHER ACCIDENT.
--- NOTE | 2016-06-17 12:51 | NUR ---
PT PROVIDED WITH GRILLED CHEESE AND SOUP AT THIS TIME
--- NOTE | 2016-06-17 14:17 | NUR ---
REPORT GIVEN TO
[2016-06-17 15:03] VITALS: BP 100/70
[2016-06-17 15:44] VITALS: BP 108/60
[2016-06-18 00:03] VITALS: BP 124/86
--- NOTE | 2016-06-18 07:11 | PN- Housestaff ---
AN DOLL,TORITO 06/18/16 0711: Subjective Follow-up For: Atrial fibrillation with rapid ventricular rate under control with by mouth diltiazem Complaints: no complaints Tele-Events Since Last Visit: Atrial fibrillation, heart rate between 91-102, no overnight events Subjective: Patient is seen and examined at the bedside. She does not have any active complaints. She is feeling that she is much better than before. Her weakness has been decreased. She was lightheaded when she was walking towards the bathroom. Denies nausea, vomiting, shortness of breath, chest pain. She is still complaining of cough which is dry in nature, not bothering her sleep. Review of Systems Constitutional: Reports: weakness. Denies: no symptoms. EENTM: Denies: no symptoms. Cardiovascular: Denies: no symptoms. Respiratory: Reports: cough. Gastrointestinal: Denies: abdominal pain, constipation, diarrhea. Genitourinary: Denies: discharge, dysuria. Musculoskeletal: Denies: back pain. Skin: Denies: no symptoms. Neurological/Psychological: Denies: no symptoms. Objective Last 24 Hrs of Vital Signs/I&O Vital Signs Date Time Temp Pulse Resp B/P Pulse O2 O2 Flow FiO2 Ox Delivery Rate 06/18 0843 125 110/64 / 0643 102 118/72 06/18 0003 97.7 101 12 124/86 95 Nasal 2.0L Cannula 06/18 0000 Nasal 2.0L Cannula 06/17 2354 100 124/86 06/17 2004 Nasal 2.0L Cannula 06/17 1744 117 108/60 06/17 1600 Nasal 2.0L Cannula 06/17 1544 97.7 95 18 108/60 96 Nasal 2.0L Cannula / 1503 97.5 98 20 100/70 97 Nasal 2.0L Cannula 06/17 1216 97.8 104 18 106/72 97 Nasal 2.0L Cannula / 1215 97.1 108 18 106/72 / 0924 97.3 107 18 112/71 97 Nasal 2.0L Cannula 06/17 0917 97.3 107 18 112/71 97 Nasal 2.0L Cannula Intake & Output 06/18 1600 06/18 0800 06/18 0000 Intake Total 0 640 Output Total Balance 0 640 Intake, IV 0 Intake, Oral 0 640 Number 0 Bowel Movements Physical Exam General Appearance: Alert, Oriented X3, Cooperative, No Acute Distress Skin: No Rashes, No Breakdown HEENT: Atraumatic, PERRLA, EOMI Neck: Supple, No JVD Cardiovascular: Normal S1, Normal S2, irregular Lungs: Clear to Auscultation, Normal Air Movement Abdomen: Soft, No Tenderness Neurological: Normal Gait, Normal Speech Extremities: No Clubbing, No Cyanosis, No Edema Assessment/Plan Assessment: Patient is an 85-year-old female, with past medical history of hyperlipidemia, hypertension, asthma , diverticulitis, DJD, paroxysmal atrial fibrillation and arthritis presented with chief complaints of lethargic and weakness. Vital signs-temperature 97.8, pulse 104, respiratory rate 18, blood pressure 106 /72, SPO2 97% on room air Problem list - Paroxysmal atrial fibrillation, on Eliquis Acute bronchitis Hypertension Hyperlipidemia Plan- * Possible discharge on the weekend * We will follow the recommendation of Dr. Amador/Damian Bustamante MD * The target heart rate is less than 110. Overnight heart rate was between 91- 102, without any treatment. But according to the nurse as the patient went to the bathroom,her heart rate increased to 117. So we increase the dose of diltiazem to 60 milligrams every 6 hourly * If heart rate remained stable and we can transition to oral Cardizem CD 240 mg daily * We will continue Tab Eliquis 5 milligrams twice a day by mouth, as her creatinine decreased down through less than 1.5 and her weight is more than 60 KG * We will continue tablet prednisone 40 mgs for total 5 days * Diet-heart healthy * CODE STATUS - full code Problem List: 1. Rapid atrial fibrillation 2. 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 But she feels weak and lightheaded when she walks around. Her rate is still an issue and the Cardizem is now increased to 60 every 6. She is already on Eliquis for A. fib. Because she was wheezing and we think this is a bronchitis induced hyperreactive airway disease we have stopped the beta luis and she's getting a quick course of by mouth prednisone. Will need to follow closely and will also need to ask Cardiology whether we need to repeat the echo.
[2016-06-18 08:00] VITALS: BP 110/64
--- NOTE | 2016-06-18 11:09 | PN- Cardiology ---
Subjective Subjective: The patient seems to be doing well today. She denies any significant symptoms. She is anxious to be discharged. She remains in atrial fibrillation with reasonably good rate control. Objective Vital Signs and I&Os Vital Signs Date Time Temp Pulse Resp B/P Pulse O2 O2 Flow FiO2 Ox Delivery Rate 06/18 0843 125 110/64 06/18 0800 97.5 94 20 110/64 97 Nasal 2.0L Cannula 06/18 0643 102 118/72 06/18 0003 97.7 101 12 124/86 95 Nasal 2.0L Cannula 06/18 0000 Nasal 2.0L Cannula 06/17 2354 100 124/86 06/17 2004 Nasal 2.0L Cannula 06/17 1744 117 108/60 06/17 1600 Nasal 2.0L Cannula 06/17 1544 97.7 95 18 108/60 96 Nasal 2.0L Cannula 06/17 1503 97.5 98 20 100/70 97 Nasal 2.0L Cannula 06/17 1216 97.8 104 18 106/72 97 Nasal 2.0L Cannula 06/17 1215 97.1 108 18 106/72 Intake & Output 06/18 1600 06/18 0800 06/18 0000 06/17 1600 06/17 0800 06/17 0000 Intake Total 0 640 700 500 500 Output Total 200 Balance 0 640 500 500 500 Intake, IV 0 500 500 Intake, Oral 0 640 700 Number 0 Bowel Movements Output, Urine 200 Patient 150 lb 150 lb Weight Physical Exam: General Appearance Alert, Oriented X3, Cooperative, No Acute Distress Lymphatic Cervical nl Cardiovascular Normal S1, Normal S2, Irregular rate and Rhythm Lungs scattered rhonchi Abdomen Normal Bowel Sounds, Soft, No Tenderness, Midline Scar Neurological Normal Gait, Normal Speech, Strength at 5/5 X4 Ext, Cranial Nerves 3-12 NL Extremities No Cyanosis, No Edema Vascular Normal Pulses Current Medications: Current Medications Sig/Shannon Start time Last Medication Dose Route Stop Time Status Admin Albuterol Sulfate 3 ML Q4P PRN 06/17 1999 AC INH Albuterol Sulfate 2 PUF Q6-PRN PRN 06/17 0130 AC INH Apixaban 5 MG BID 06/17 220 AC 06/18 PO 0946 Apixaban 2.5 MG BID 06/17 1000 DC 06/17 PO 0942 Atorvastatin Calcium 20 MG 1700 06/17 1700 AC 06/17 PO 1744 Diltiazem HCl 60 MG Q6 06/18 1200 AC PO Diltiazem HCl 30 MG ONCE ONE 06/18 0745 DC 06/18 PO 06/18 0746 0843 Diltiazem HCl 30 MG Q6 06/17 1200 DC 06/18 PO 0643 Diltiazem HCl 125 MG Q12H 06/16 2230 DC 06/16 Sodium Chloride 100 ML IV 2300 Fluticasone 2 PUF BID 06/17 1000 AC 06/18 Propionate INH 0947 Prednisone 40 MG DAILY 06/17 1000 AC 06/18 PO 06/21 2100 0947 Sodium Chloride 1,000 ML Q10H 06/17 0230 DC IV Results Last 48 Hrs of Labs/Mics: Laboratory Tests 06/18/16 0645: Anion Gap 8, Estimated GFR 47 L, BUN/Creatinine Ratio 35.5 H 06/17/16 1204: Troponin I < 0.01 06/17/16 0606: Troponin I 0.04 06/17/16 0606: Anion Gap 10, Estimated GFR 43 L, BUN/Creatinine Ratio 29.2 H, Magnesium 1.9, TSH 0.756, Free T4 2.06 H 06/17/16 0105: Lactic Acid 0.9 06/16/16 2150: Anion Gap 14, Estimated GFR 31 L, BUN/Creatinine Ratio 22.5, Glucose 137 H, Lactic Acid 2.2 H, Calcium 8.7, Total Bilirubin 0.8, AST 29, ALT 32, Alkaline Phosphatase 94, Troponin I 0.02, Total Protein 6.8, Albumin 4.1, Globulin 2.7, Albumin/Globulin Ratio 1.5, PT 13.9 H, INR 1.33 H, APTT 40 H, CBC w Diff NO MAN DIFF REQ, RBC 5.53 H, MCV 90.9, MCH 29.9, RDW 14.3, MPV 9.8, Gran % 62.4, Lymphocytes % 24.4, Monocytes % 12.8 H, Eosinophils % 0.1, Basophils % 0.3, Absolute Granulocytes 4.2, Absolute Lymphocytes 1.6, Absolute Monocytes 0.9 H, Absolute Eosinophils 0, Absolute Basophils 0, PUBS MCHC 32.9 L 06/16/162141: Urine Color Cancelled, Urine Clarity Cancelled, Urine pH Cancelled, Ur Specific [place] Cancelled, Urine Protein Cancelled, Urine Ketones Cancelled, Urine Nitrite Cancelled, Urine Bilirubin Cancelled, Urine Urobilinogen Cancelled, Ur Leukocyte Esterase Cancelled, Ur Microscopic Cancelled, Urine Hemoglobin Cancelled, Urine Glucose Cancelled Assessment/Plan Assessment/Plan Assessment: 1. Atrial fibrillation with rapid ventricular rate 2. Upper respiratory symptoms with likely bronchitis 3. History of hypertension 4. History of hyperlipidemia Operations: -Continue current medication regimen for now. -Continue anticoagulation regimen as currently -If the patient's heart rate remains stable, transition to oral Cardizem CD 240 mg daily beginning in the morning -Out of bed as tolerated and ambulate -Discharge planning Continue telemetry? Yes
--- NOTE | 2016-06-18 14:02 | Patient Discharge Instructions ---
Discharge Instructions General Discharge Information You were seen/treated for: Rapid atrial fibrillation treated with diltiazem Special Instructions: Please follow-up with your PCP within a week of discharge. Please follow-up with Dr. Amador/manager domestic within a week of discharge We stopped metoprolol as it can cause bronchospasm. Diet Continue normal diet: No Recommended Diet: Heart Healthy Activity Full Activity/No Limits: No Activity Self Limited: Yes Acute Coronary Syndrome Inclusion Criteria At DC or during hospital stay patient has or had the following: ACS DIAGNOSIS No Discharge Core Measures Meds if any: Prescribed or Continued at Discharge Meds if any: NOT Prescribed or Continued at Discharge Congestive Heart Failure Inclusion Criteria At DC or during hospital stay patient has or had the following: CHF DIAGNOSIS No Discharge Core Measures Meds if any: Prescribed or Continued at Discharge Meds if any: NOT Prescribed or Continued at Discharge Cerebrovascular accident Inclusion Criteria At DC or during hospital stay patient has or had the following: CVA/TIA Diagnosis No Discharge Core Measures Meds if any: Prescribed or Continued at Discharge Meds if any: NOT Prescribed or Continued at Discharge Venous thromboembolism Inclusion Criteria VTE Diagnosis No VTE Type NONE VTE Confirmed by (Test) NONE Discharge Core Measures - Per Current guidelines, there needs to be overlap - treatment for the first 5 days of Warfarin therapy. - If discharged on Warfarin prior to 5 days of - overlap therapy, the patient will need to be - assessed for post discharge needs including - *Post discharge parental anticoagulation - *Warfarin and/or parental anticoagulation education - *Follow up date to check INR post discharge At least 5 days overlap therapy as Inpatient No Meds if any: Prescribed or Continued at Discharge Warfarin No Note: Overlap Therapy is Warfarin and Anticoagulant Meds if any: NOT Prescribed or Continued at Discharge
[2016-06-18] MEDS ORDERED: PREDNISONE20 M1 PO (14:13)
[2016-06-18] MEDS ORDERED: CARDIZEM CD240 M1 PO (14:13)
[2016-06-18] MEDS ORDERED: LEVOTHYROXINE50 MCG PO (14:37)
[2016-06-18] MEDS ORDERED: LEXAPRO20 M1 PO (15:01)
[2016-06-18 16:11] VITALS: BP 90/60
[2016-06-19 00:30] VITALS: BP 110/70
[2016-06-19 06:56] VITALS: BP 119/78
--- NOTE | 2016-06-19 07:18 | PN- Housestaff ---
AN DOLL,TORITO 06/19/16 0717: Subjective Follow-up For: Atrial fibrillation with rapid ventricular rate under control with by mouth diltiazem Complaints: no complaints Tele-Events Since Last Visit: AF, HR 84-103, no events Subjective: Patient is seen and examined at the bedside. She was complaining of palpitation while she went to bathroom overnight. According to the nurse, her heart rate went up to 150 when she went to the bathroom. She denies of any chest pain, shortness of breath, cough which bothers her night sleep. Review of Systems Constitutional: Denies: no symptoms. EENTM: Denies: no symptoms. Cardiovascular: Denies: chest pain, edema, orthopena, palpitations, peripheral edema. Respiratory: Denies: cough, hemoptysis, orthopnea, short of breath, sputum production. Gastrointestinal: Denies: abdominal pain, bloating, constipation, diarrhea. Genitourinary: Denies: discharge, dysuria, frequency, hematuria, hesitation. Musculoskeletal: Denies: back pain, gout, joint pain, joint swelling, muscle pain. Skin: Denies: no symptoms. Neurological/Psychological: Denies: no symptoms. Objective Last 24 Hrs of Vital Signs/I&O Vital Signs Date Time Temp Pulse Resp B/P Pulse O2 O2 Flow FiO2 Ox Delivery Rate 06/19 0656 97.4 98 18 119/78 92 Room Air / 0652 97.8 93 18 119/78 / 0030 97.6 115 20 110/70 95 Room Air / 0016 97.6 115 20 110/70 02/04 0000 Room Air 06/18 1913 85 100/70 / 1638 92 Room Air Room Air 06/18 1611 97.1 104 16 90/60 93 Room Air / 1600 96 Room Air 06/18 1326 97 Room Air Room Air / 1307 90 116/64 /03 0843 125 110/64 / 0800 97 Nasal 2.0L Cannula / 0800 97.5 94 20 110/64 97 Nasal 2.0L Cannula Intake & Output /04 0800 02/04 0000 02/03 1600 Intake Total 220 320 400 Output Total 451 Balance -231 320 400 Intake, IV 20 Intake, Oral 220 300 400 Output, Stool 1 Output, Urine 450 Physical Exam General Appearance: Alert, Oriented X3, Cooperative, No Acute Distress Skin: No Rashes, No Breakdown HEENT: Atraumatic, PERRLA, EOMI Neck: Supple, No JVD Cardiovascular: Normal S1, Normal S2, irregular Lungs: Clear to Auscultation, Normal Air Movement Abdomen: Normal Bowel Sounds, Soft, No Tenderness Neurological: Normal Speech Extremities: No Clubbing, No Cyanosis, No Edema, Normal Pulses Vascular: Normal Pulses, Pulses Symmetrical Assessment/Plan Assessment: Patient is an 85-year-old female, with past medical history of hyperlipidemia, hypertension, asthma diverticulitis, DJD, paroxysmal atrial fibrillation and arthritis presented with chief complaints of lethargy and weakness. Vital signs-temperature 97.8, pulse 104, respiratory rate 18, blood pressure 106 /72, SPO2 97% on room air Problem list - Paroxysmal atrial fibrillation, on Eliquis Acute bronchitis Hypertension Hyperlipidemia Plan- * Possible discharge on the weekend * We will follow the recommendation cardiology. * The target heart rate is less than 110. Overnight heart rate was between 84 - 103, without any treatment. But according to the nurse as the patient start walking,her heart rate increased to 125 -150. * According to catalyst impregnator we changed oral Cardizem CD 360 mg daily * We will continue Tab Eliquis 5 milligrams twice a day by mouth. * We will continue tablet prednisone 40 mgs for total 5 days * Diet-heart healthy * CODE STATUS - full code Problem List: 1. Rapid atrial fibrillation 2. Acute bronchitis Pain Ratin Pain Location: none Pain Goal: Remain pain free Pain Plan: mild Tomorrow's Labs & Rationales: nothing DVT/Prophylaxis: mechanical, pharmacological JAIME DOLL,AMIR 06/19/16 1011: Attending MD Review Statement Attending Statement Attending MD Statement: examined this patient, discuss w/resident/PA/NEWSPAPER MANAGING EDITOR, agreed w/resident/PA/NEWSPAPER MANAGING EDITOR, reviewed EMR data (avail), discussed with nursing Attending Assessment/Plan: Ms. Torres was seen by me, chart reviewed. Currently reports feeling better, denies dizziness or lightheadedness. No CP or SOB. HR in 100s. Exam reveals tachycardia, lungs CTA. she wants to go home. She has a f/u cards appt. If OK with cards, can be d/ayan home today on quick PO steroid course and Cardizem. denies dizziness or lightheadedness. No CP or SOB. HR in 100s. Exam reveals tachycardia, lungs CTA. she wants to go home. She has a f/u cards appt. If OK with cards, can be d/ayan home today on quick PO steroid course and Cardizem.
--- NOTE | 2016-06-19 07:21 | NUR ---
PT'S HR RAISES TO 130-150 WHEN GETTING UP. MD AWARE.
[2016-06-19 08:17] LABS: ABSOLUTE BASOPHIL COUNT 0 /CUMM (0.0-0.2); ABSOLUTE EOSINOPHIL COUNT 0 /CUMM (0.0-0.7); ABSOLUTE GRANULOCYTE CT 6.5 /CUMM (1.4-6.5); ABSOLUTE LYMPH COUNT 0.9 /CUMM (1.2-3.4); ABSOLUTE MONOCYTE COUNT 0.8 /CUMM (0.10-0.60); BASOPHIL % 0.2 % (0.0-2.0); EOSINOPHIL % 0 % (0-5); GRANULOCYTE % 78.9 % (42.2-75.2); MEAN CORPUSCULAR HGB 30.2 PG (27.0-31.0); MEAN CORPUSCULAR HGB CONC 33.4 G/DL (33.0-37.0); MEAN CORPUSCULAR VOLUME 90.5 FL (81.0-99.0); MEAN PLATELET VOLUME 10.2 FL (7.4-10.4); PLATELET COUNT 133 /CUMM (130-400); RBC DISTRIBUTION WIDTH 14.8 % (11.5-14.5); RED BLOOD CELL CT 4.37 /CUMM (4.20-5.40); WHITE BLOOD CELL COUNT 8.2 /CUMM (4.8-10.8)
[2016-06-19 09:28] LABS: HEMATOCRIT 39.5 % (37-47)
[2016-06-19 10:00] VITALS: BP 100/60
--- NOTE | 2016-06-19 10:00 | NUR ---
PATIENT REMAINS ALERT AND ORIENTATED X3. AFIB WITH RVR 120'S. AND INCREASES TO 140'S WITH ACTIVITIES. PATIENT ON PO CARDIZEM. SHELL COREMAKER AWARE. DENIES CHEST DISCOMFORT. PLAN D/C WHEN HEART RATE STABLE.
[2016-06-19 16:27] VITALS: BP 108/60
--- NOTE | 2016-06-19 19:42 | PN- Cardiology ---
Subjective Subjective: * no complaints * atrial fibrillation with mildly increased heart rate Objective Vital Signs and I&Os Vital Signs Date Time Temp Pulse Resp B/P Pulse O2 O2 Flow FiO2 Ox Delivery Rate 06/19 1716 97.6 80 20 108/60 02/04 1627 97.6 80 20 108/60 94 02/04 1159 116 102/60 / 1134 96 Room Air Room Air 02/ 1000 97.5 115 20 100/60 94 Room Air / 0800 95 Room Air Room Air / 0656 97.4 98 18 119/78 92 Room Air 02/ 0652 97.8 93 18 119/78 / 0030 97.6 115 20 110/70 95 Room Air / 0016 97.6 115 20 110/70 02/04 0000 Room Air Intake & Output 06/19 1600 06/19 0800 02/04 0000 02/03 1600 /03 0800 02/03 0000 Intake Total 480 220 320 400 0 640 Output Total 451 Balance 480 -231 320 400 0 640 Intake, IV 20 0 Intake, Oral 480 220 300 400 0 640 Number 1 0 Bowel Movements Output, Stool 1 Output, Urine 450 Physical Exam: General: WD/ WN female in NAD; alert and oriented x 3 Neck: no JVD Heart: irregularly irregular Lungs: clear bilaterally Extremities: no edema Assessment/Plan Assessment/Plan * Continue Eliquis * Change Cardizem to cardizem CD 360mg daily Continue telemetry? Yes
[2016-06-19 23:35] VITALS: BP 104/62
[2016-06-20 08:49] VITALS: BP 149/102
[2016-06-20 09:30] VITALS: BP 160/100
[2016-06-20] MEDS ORDERED: CARDIZEM CD120 M2 PO (10:42)
[2016-06-20] MEDS ORDERED: DILTIAZEM 24HR360 MG PO (10:43)
[2016-06-20] MEDS ORDERED: PREDNISONE20 M1 PO (10:52)
--- NOTE | 2016-06-20 10:56 | PN- Cardiology ---
Subjective Subjective: * Patient is doing well without complaints. * atrial fibrillation with good rate control Objective Vital Signs and I&Os Vital Signs Date Time Temp Pulse Resp B/P Pulse O2 O2 Flow FiO2 Ox Delivery Rate 06/20 0930 113 160/100 06/20 0849 97.6 112 18 149/102 94 Room Air 06/19 2335 98.0 98 20 104/62 94 06/19 1716 97.6 80 20 108/60 06/19 1627 97.6 80 20 108/60 94 06/19 1159 116 102/60 06/19 1134 96 Room Air Room Air Intake & Output 06/20 1600 06/20 0806/20 0000 06/19 1600 06/19 0800 06/19 0000 Intake Total 100 240 480 220 320 Output Total 400 451 Balance 100 -160 480 -231 320 Intake, IV 20 Intake, Oral 100 240 480 220 300 Number 1 Bowel Movements Output, Stool 1 Output, Urine 400 450 Physical Exam: General: WD/ WN female in NAD; alert and oriented x 3 Neck: no JVD Heart: irregularly irregular Lungs: clear bilaterally Extremities: no edema Assessment/Plan Assessment/Plan * Continue Eliquis * Continue cardizem CD 360mg daily * This patient is hypertensive this morning but her cardizem was held last evening and I would expect it to come down. We can discharge this patient to home with follow up in the office in one week. Continue telemetry? No
--- NOTE | 2016-06-20 11:06 | PN- Housestaff ---
KAYLAN DOLL,[facility] 06/20/16 1106: Subjective Follow-up For: 1. Atrial fibrillation with rapid ventricular rate 2. Hypertension Tele-Events Since Last Visit: A fib between 80-113, one episode of 150 in am Subjective: The patient has been seen and examined, she feels well denies any chest pain, palpitations, dizziness or shortness of breath. Her heart rate overnight has remained between 80-113, had one episode of heart rate that went up to 150 the morning around 8:00. Blood pressure 160/100 in the morning today. Feels really well and wants to go home Review of Systems Constitutional: Reports: see HPI. Cardiovascular: Reports: no symptoms. Respiratory: Reports: no symptoms. Gastrointestinal: Reports: no symptoms. Genitourinary: Reports: no symptoms. Objective Last 24 Hrs of Vital Signs/I&O Vital Signs Date Time Temp Pulse Resp B/P Pulse O2 O2 Flow FiO2 Ox Delivery Rate 06/20 1409 88 110/80 06/20 0930 113 160/100 06/20 0849 97.6 112 18 149/102 94 Room Air 06/19 2335 98.0 98 20 104/62 94 06/19 1716 97.6 80 20 108/60 04 1627 97.6 80 20 108/60 94 Intake & Output 06/20 1600 06/20 0800 02/ 0000 Intake Total 480 100 240 Output Total 400 Balance 480 100 -160 Intake, Oral 480 100 240 Output, Urine 400 Physical Exam General Appearance: Alert, Oriented X3, Cooperative, No Acute Distress Neck: No JVD Cardiovascular: Normal S1, Normal S2, No Murmurs, irregularly irregular Lungs: Clear to Auscultation, Normal Air Movement Abdomen: Normal Bowel Sounds, Soft, No Tenderness, No Hepatospenomegaly Extremities: No Cyanosis, No Edema, Normal Pulses Lines/Diet/Fluids Lines: peripheral lines Assessment/Plan Assessment: 85-year-old woman, with past medical history of hyperlipidemia, hypertension, asthma diverticulitis, DJD, paroxysmal atrial fibrillation and arthritis presented with chief complaints of lethargy and weakness, admitted for A. fib with rapid ventricular rate Problem list: 1. Paroxysmal atrial fibrillation, on Eliquis 2. Acute bronchitis 3. Hypertension Plan: 1. A. fib with rapid ventricular rate: - Continue to treat the patient's heart rate was uncontrolled and went as high as 130s, initially she was started on Cardizem by mouth 60 mg every 6, transition to Cardizem 240 daily and then to 360 mg. It is appropriate to note that yesterday's dose was not given. - Heart rate is under good control therefore will continue with Cardizem 360 mg by mouth daily - Blood pressure 160/100 in the morning, prior to Cardizem dose - Blood pressure comes down and cardiology agrees with the plan, she will be discharged today - Continue with Eliquis 5 mg by mouth daily 2. Acute bronchitis: - We'll continue to hold beta luis upon discharge - day 4 of prednisone 40 mg today - Continue for 1 more day and DC after tomorrow's dose that is on 06/21/2016 3. Hypertension: - Blood pressure 160/100 in the morning prior to Cardizem dose - If Blood pressure comes down from the patient will be good for discharge 4. Heart healthy diet 5. DVt PPx: On Eliquis 6. FULL CODE Problem List: 1. Atrial fibrillation Pain Ratin Pain Location: None Pain Goal: Remain pain free Pain Plan: PRN TYlenol Tomorrow's Labs & Rationales: None DVT/Prophylaxis: pharmacological JAIME DOLL,AMIR 06/20/16 1130: Attending MD Review Statement Attending Statement Attending MD Statement: examined this patient, discuss w/resident/PA/SURVEY OPERATIONS DIRECTOR, agreed w/resident/PA/SURVEY OPERATIONS DIRECTOR, reviewed EMR data (avail), discussed with nursing Attending Assessment/Plan: Ms. Torres was seen by me, reports doing well. Appreciate cards input. Cont current meds, can d/c home if BP is better improved today. Rest of the plan as per resident's note.
[2016-06-20 14:09] VITALS: BP 110/80
--- NOTE | 2016-06-20 16:01 | Event Note ---
Event Note Event Note: Blood pressure 110/80, HR 88, no symptoms of chest pain or palpitations. Feel very well. Stable for DC home today o new dose of Cardizem 360 mg PO Daily, with follow up with Dr. Bains as an outpatient.
== END 2016-06-20 15:30 | DRG 202 ==
LOC: ENRESERVDT → ENRESERVTM → ERH 21:14 → ERHI 22:50 → ENPENDDIS 22:50 → 1NO 22:50 → ERHI 06-17 10:06 → 1NO 06-17 14:31
PROVIDERS: Emergency Medicine; Internal Medicine; ADMIT Internal Medicine
DX: J20.9 Acute bronchitis, unspecified (principal); N17.9 Acute kidney failure, unspecified; E78.5 Hyperlipidemia, unspecified; I48.0 Paroxysmal atrial fibrillation; Z79.01 Long term (current) use of anticoagulants; I10 Essential (primary) hypertension; Z93.3 Colostomy status; M19.90 Unspecified osteoarthritis, unspecified site
CPT/HCPCS: 1NP; ERO; 36415; 82436; 87040; 87070; 87804; 87804-59; 93005; 93010; 96361; 96374; 97110-GO; 97116-GO; 97161-GP; 97530-GO; J2930; J3490; J7040